=== PATIENT | male | born 1995 | race Caucasian/White ===

== ENCOUNTER 2017-11-07 13:01 | Emergency (ER) | payer OTHER ==
[~2017-11-07] VITALS: Ht 170.2 cm; Wt 81.6 kg
[2017-11-07 13:16] VITALS: Ht 170.2 cm; Wt 81.6 kg
[2017-11-07 20:11] VITALS: BP 129/74
== END 2017-11-07 20:09 | disposition short-term general hospital (02) ==
LOC: ED 13:01
DX: S62.631B Displaced fracture of distal phalanx of left index finger, initial encounter for open fracture (principal); S62.633B Displaced fracture of distal phalanx of left middle finger, initial encounter for open fracture; W31.89XA Contact with other specified machinery, initial encounter; Y93.89 Activity, other specified; Y92.89 Other specified places as the place of occurrence of the external cause; Y99.8 Other external cause status
CPT/HCPCS: 90715; J0690; J2001

== ENCOUNTER 2018-11-21 14:06 | Emergency (ER) | payer MEDICAID ==
[~2018-11-21] VITALS: Ht 167.6 cm; Wt 74.8 kg
[2018-11-21 14:10] VITALS: Ht 167.6 cm; Wt 74.8 kg
[2018-11-21 14:40] VITALS: BP 139/56
== END 2018-11-21 14:40 | disposition home or self-care (01) ==
LOC: ED 14:06
DX: M62.830 Muscle spasm of back (principal)